=== PATIENT | female | born 1985 | race Caucasian/White ===

== ENCOUNTER 2016-07-16 07:23 | Emergency (ER) | payer OTHER | END 2016-07-16 08:19 | disposition home or self-care (01) | LOC: FER 07:23 | DX: S30.0XXA Contusion of lower back and pelvis, initial encounter (principal); F17.210 Nicotine dependence, cigarettes, uncomplicated; W18.30XA Fall on same level, unspecified, initial encounter | CPT/HCPCS: 72220; 99283 ==

== ENCOUNTER 2020-05-16 13:58 | Emergency (ER) | payer OTHER ==
[~2020-05-16 13:58] MED LIST: AMOXICILLIN500 MG PO; METRONIDAZOLE500 MG PO
[2020-05-16] MEDS ORDERED: NAPROXEN500 MG PO (17:52)
== END 2020-05-16 18:06 | disposition home or self-care (01) ==
LOC: FER 13:58
DX: S20.212A Contusion of left front wall of thorax, initial encounter (principal); F17.210 Nicotine dependence, cigarettes, uncomplicated; W19.XXXA Unspecified fall, initial encounter
CPT/HCPCS: 71101; 96372; J1100; J1885

== ENCOUNTER 2020-05-22 07:16 | Emergency (ER) | payer OTHER ==
[~2020-05-22 07:16] MED LIST changes: +NAPROXEN500 MG PO
[2020-05-22 08:04] LABS: BILIRUBIN NEGATIVE (NEGATIVE); BLOOD TRACE-INTACT Ery/uL (NEGATIVE); CLARITY CLEAR (CLEAR); COLOR YELLOW (YELLOW); GLUCOSE (U) NORMAL (NORMAL); LEUKOCYTES NEGATIVE Leu/uL (NEGATIVE); NITRITE NEGATIVE (NEGATIVE); PROTEIN NEGATIVE (NEGATIVE); SPECIFIC GRAVITY >=1.030 (1.001-1.030); UROBILINOGEN 0.2 mg/dL (0.2-1.0)
[2020-05-22 08:09] LABS: BACTERIA TRACE; URINARY WBC RARE
[2020-05-22 08:10] LABS: AMPHETAMINES NEGATIVE (NEGATIVE); BARBITURATES NEGATIVE (NEGATIVE); ECSTASY (MDMA) NEGATIVE (NEGATIVE); MARIJUANA (THC) NEGATIVE (NEGATIVE); METHADONE NEGATIVE (NEGATIVE); OPIATES NEGATIVE (NEGATIVE); OXYCODONE NEGATIVE (NEGATIVE)
[2020-05-22 08:26] LABS: BASOPHIL 0.5 % (0-2); EOSINOPHIL 0.7 % (0-5); HCT 46.5 % (37.0-47.0); HGB 15.4 g/dl (12.5-16.0); LYMPHOCYTE 17.2 % (15-48); MCH 30.6 pg (25.0-31.0); MCHC 33.1 g/dL (32.0-36.0); MCV 92.3 fL (78.0-100.0); MPV 9.1 fL (6.0-9.5); NEUTROPHIL 75.2 % (41-80); NRBC 0; PLT 325 K/uL (150-400); RBC 5.04 M/uL (4.20-5.40); RDW 12.2 % (11.5-14.0)
[2020-05-22 08:42] LABS: ALBUMIN 3.8 g/dL (3.4-5.0); BILIRUBIN - TOTAL 0.5 mg/dL (0.2-1.0); BUN/CREAT RATIO (CALC) 14.5 RATIO; CREATININE 0.69 mg/dL (0.51-0.95); GLOBULIN (CALCULATION) 4.1 g/dL; POTASSIUM 3.7 mmol/L (3.5-5.1); TOTAL PROTEIN 7.9 g/dL (6.4-8.2)
[2020-05-22] MEDS ORDERED: PROTONIX 40MG T40 MG PO (11:09)
[2020-05-22] MEDS ORDERED: PEPCID AC20 MG PO (11:09)
[2020-05-22] MEDS ORDERED: CARAFATE1 GM PO (11:09)
== END 2020-05-22 11:24 | disposition home or self-care (01) ==
LOC: FER 07:16
PROVIDERS: Emergency Medicine
DX: K25.9 Gastric ulcer, unspecified as acute or chronic, without hemorrhage or perforation (principal); R10.32 Left lower quadrant pain; F17.200 Nicotine dependence, unspecified, uncomplicated; Z90.710 Acquired absence of both cervix and uterus; Z88.5 Allergy status to narcotic agent; Z88.6 Allergy status to analgesic agent
CPT/HCPCS: 36415; 76705; 80053; 80305; 81001; 83605; 83690; 85025; 87339; J2270; J2405; Q9967